=== PATIENT | male | born 1985 | race Two or more races ===

== ENCOUNTER 2024-07-09 11:37 | Emergency (ER) | payer OTHER ==
[~2024-07-09] VITALS: Ht 177.8 cm; Wt 59.0 kg
[~2024-07-09 11:37] MED LIST: CHLORDIAZEPOXID10 MG PO; NEXIUM40 M1 PO; ONDANSETRON ODT4 MG PO; PEPCID AC20 MG PO
[2024-07-09] MEDS ORDERED: ONDANSETRON HCL 2 MG/ML VIAL ONE ×2 (12:46→17:12)
[2024-07-09] MEDS ORDERED: FAMOTIDINE/PF 20 MG/2 ML VIAL ONE (12:46)
[2024-07-09 13:14] LABS: HEMATOCRIT 43.3 % (39.0-48.0); HEMOGLOBIN 14.1 g/dL (13-16.00); MEAN CELL VOLUME 86.6 fL (80.0-100.00); MEAN CORPUSCULAR HEMOGLOBIN 28.2 pg (27.00-32.0); MEAN CORPUSCULAR HGB CONC 32.6 g/dl (32.0-36.0); PLATELET COUNT 228 K/uL (150-450); RED CELL DISTRIBUTION WIDTH 13.3 % (11.5-14.5)
[2024-07-09 13:38] LABS: CALCIUM 8.9 mg/dL (8.5-10.1); CREATININE SERUM 0.95 mg/dL (0.70-1.30); GFR 88.72; POTASSIUM 3.53 mEq/L (3.5-5.1)
[2024-07-09] MEDS ORDERED: METOCLOPRAMIDE HCL 5 MG/ML VIAL ONE (17:12)
== END 2024-07-09 19:25 | disposition home or self-care (01) ==
LOC: ER 11:39
PROVIDERS: Emergency Medicine
DX: R19.7 Diarrhea, unspecified (principal); R11.2 Nausea with vomiting, unspecified; R11.10 Vomiting, unspecified; Z20.822 Contact with and (suspected) exposure to COVID-19; Z91.011 Allergy to milk products; Z91.013 Allergy to seafood